=== PATIENT | female | born 1980 | race Caucasian/White ===

== ENCOUNTER 2023-06-04 10:18 | Outpatient (CLI) | payer BC, SELFPAY ==
--- NOTE | ~2023-06-04 | US_ITS ---
EXAMINATION: US OB <=14 wk fetus w TV DATE: 06/04/2023 11:05 INDICATION: First trimester dating TECHNIQUE: Real-time pelvic transabdominal and transvaginal ultrasound was performed. COMPARISON: None. FINDINGS: The uterus measures 10.5 x 5.7 x 4.7 cm. There is an intrauterine gestational sac. There is a 2.7 x 2.7 x 1.0 cm hypoechoic area adjacent to the gestational sac A yolk sac is identified. heart motion is identified not well demonstrated. The crown rump length measures 3 mm, which c orrelates with an estimated gestational age of 5 weeks and 6 day(s) (+/-) 4 day(s). The right ovary measures 5.4 x 2.1 x 2.0 cm. The left ovary measures 2.0 x 1.7 x 1.7 cm. There is nor mal vascular flow in the ovaries. There is no free fluid in the pelvis. IMPRESSION: 1. Live intrauterine with an estimated gestational age of 5 weeks and 6 day(s) (+/-) 4 day( s) and an estimated delivery date of 01/29/2024. 2. Subchorionic hematoma. 3. cardiac motion not well demonstrated, likely due to early . Reviewed, dictated and finalized at location L. X SYSTEM ADMINISTRATOR IMPRESSION: 1. Live intrauterine with an estimated gestational age of 5 weeks and 6 day(s) (+/-) 4 day(s) and an estimated delivery date of 01/29/2024. 2. Subchorionic hematoma. 3. cardiac motion not well demonstrated, likely due to early .
== END 2023-06-04 10:19 ==
LOC: GOSHIMG 10:21
PROVIDERS: PCP Internal Medicine; Visit Provider Student in an Organized Health Care Education/Training Program
DX: N94.89 Other specified conditions associated with female genital organs and menstrual cycle (principal); O36.8911 Maternal care for other specified fetal problems, first trimester, fetus 1; Z3A.01 Less than 8 weeks gestation of pregnancy
CPT/HCPCS: 76801; 76817

== ENCOUNTER 2023-06-10 11:03 | Outpatient (CLI) | payer BC, SELFPAY | END 2023-06-10 11:04 | disposition home or self-care (01) | LOC: ANHLAB 11:05 | PROVIDERS: PCP Internal Medicine; Visit Provider Student in an Organized Health Care Education/Training Program | DX: O20.0 Threatened abortion (principal); Z3A.00 Weeks of gestation of pregnancy not specified | CPT/HCPCS: 36415; 84702 ==

== ENCOUNTER 2023-06-12 09:08 | Emergency (ER) | payer BC, SELFPAY ==
--- NOTE | ~2023-06-12 | US_ITS ---
EXAMINATION: US OB <=14 wk fetus w TV DATE: 06/12/2023 10:59 INDICATION: Bleeding and cramping during first trimester TECHNIQUE: Real-time pelvic transabdominal and transvaginal ultrasound was performed. COMPARISON: 06/04/2023 FINDINGS: The uterus measures 10.6 x 5.5 x 4.8 cm. The endometrial thickness measures 17 mm. The prev iously described intrauterine gestational sac is no longer identified. The right ovary measures 3.4 x 1.9 x 2.3 cm. The left ovary measures 2.7 x 2.0 x 1.9 cm. There is normal vascular flow in the ovari es. There is no free fluid in the pelvis. IMPRESSION: 1. Findings consistent with failure. Reviewed, dictated and finalized at location B. ICAL PUNCH OPERATOR
[2023-06-12 09:24] VITALS: BP 118/78; PULSE 74; RESP 18; TEMP 36.5; O2SAT 99
--- NOTE | 2023-06-12 09:30 | ED.FEMALEGU ---
HPI - Female Genitourinary General Chief complaint: Vaginal Bleeding Stated complaint: vag bleed Time Seen by Provider: 06/12/23 09:24 History of Present Illness HPI Narrative: 43-year-old female, , reports for evaluation for vaginal bleeding. LMP 04/18/2023. She is currently approximately 7 weeks . Her OBGYN is Dr. Damon. Patient states she has had very light vaginal spotting for 4 days. States she woke up at 5:00 a.m. with lower abdominal and suprapubic pain and had a gush of bleeding at 5:00 a.m. lasting approximately 45 minutes. States she passed a few large clots. States around 545 or 6, the bleeding has lightened up and she has now had to change a pad every couple hours. She reports lightheadedness when going from a sitting to standing position. Denies syncope, chest pain or shortness of breath, dysuria, fever, vomiting or diarrhea. She does endorse nausea. Ultrasound on 06/04/2023 shows a live intrauterine with an estimated gestational age of 5 weeks and 6 days. ADRIANO 01/29/24. There is a subchorionic hematoma. cardiac motion was not well demonstrated, likely due to early . The patient has a history of rheumatoid arthritis. She has not been taking methotrexate for a few months. Related Data Home Medications Medication Instructions Recorded Confirmed vits no.126-ferrous fum tablet PO 06/03/23 06/03/23 28 mg iron-folic acid 800 mcg tablet (Classic ) Allergies Allergy/AdvReac Type Severity Reaction Status Date / Time No Known Allergies Allergy Verified 06/03/23 14:44 Review of Systems Review of Systems: CONSTITUTIONAL: Denies fever, chills, or sweats. EYES: Denies visual changes, redness, or discharge. ENT: Denies rhinorrhea, congestion, sore throat, or otalgia. CARDIOVASCULAR: Denies chest pain, palpitations, or edema. RESPIRATORY: Denies cough or dyspnea. GASTROINTESTINAL: See HPI GENITOURINARY: See HPI SKIN: Denies rash or itching. MUSCULOSKELETAL: Denies back pain, joint pain, or myalgia. NEUROLOGIC: Denies headache, numbness, or weakness. PSYCHIATRIC: Denies anxiety or depression. [facility] Past Medical History Medical History Rheumatoid arthritis Suppression of menses Surgical History Surgical History H/O gastric sleeve H/O gynecological procedure D & C History of delivery Hx of rhinoplasty Hx of tonsillectomy Family History Family History Mother Cerebrovascular accident Father Diabetes mellitus Social History Social History Smoking status: Never smoker Alcohol intake: former Substance use: former Substance use type: marijuana Lack of Transportation: No Lack of Food: Never True Current Housing: I Have Housing Concerned About Future Housing: No Difficulty Paying Gas/Electric Bills: No Difficulty Paying for Meds: No Currently Unemployed: No Education: High School Diploma/GED Difficulty w/ Childcare or Family Care: No Living arrangements: with family Occupation/Education: occupation Gender identity (if verbalized by the patient): Female Exam Narrative: GENERAL: Well-appearing, well-nourished, and in no acute distress. HEAD: Normocephalic, atraumatic. EYES: PERRLA and EOMI. ENT: Nares clear, no rhinorrhea or epistaxis. Mucous membranes moist. NECK: Supple. CHEST: Clear to auscultation. No respiratory distress. HEART: Regular rate and rhythm. No murmur heard. Normal peripheral pulses. ABDOMEN: Normoactive bowel sounds. Abdomen soft with mild tenderness in the suprapubic region. No guarding, rebound or rigidity. : No lesions, rashes or edema external genitalia, vaginal vault or cervix. Moderate amount of blood and surgical canal, no clots or tissue
[2023-06-12 09:34] LABS: Basophils Absolute Auto 0.1 K/mm3 (0.0-0.1); Basophils Percent Auto 0.8 % (0.2-1.2); Eosinophils Absolute Auto 0.2 K/mm3 (0-0.3); Eosinophils Percent Auto 1.5 % (0-4.4); Hematocrit 34.2 % (37.0-47.0); Hemoglobin 10.1 g/dL (12.0-15.0); Immature Granulocyte Absolute 0.04 K/mm3 (0.00-0.031); Immature Granulocyte Percent A 0.4 % (0-0.5); Lymphocytes Absolute Auto 2.11 K/mm3 (0.9-3.2); Mean Corpuscular HGB Conc 29.5 g/dl (32-36); Mean Corpuscular Hemoglobin 22.1 pg (26-34); Mean Corpuscular Volume 74.7 fl (80-100); Mean Platelet Volume 9.4 fl (7.4-10.4); Monocytes Absolute Auto 0.6 K/mm3 (0.1-0.6); Monocytes Percent Auto 5.2 % (2.6-8.5); Neutrophils Absolute Auto 8.1 K/mm3 (1.3-6.7); Neutrophils Percent Auto 73.1 % (45.5-73.1); Platelet Count Result 316 k/mm3 (150-375); Red Blood Count 4.58 M/mm3 (4.2-5.4); Red Cell Distribution Width 15.5 % (11.5-14.5); White Blood Count 11.1 K/mm3 (4.5-10.0)
[2023-06-12] MEDS: METOCLOPRAMIDE HCL 10 MG TABLET PO (09:41)
[2023-06-12] MEDS: ACETAMINOPHEN 500 MG TABLET 1000 MG PO (09:41)
--- NOTE | 2023-06-12 09:48 | PC.NURSE ---
Pt to US
[2023-06-12 09:53] LABS: Prothrombin Time 13.6 Seconds (11.1-14.7)
[2023-06-12 09:54] LABS: Partial Thromboplastin Time 26.7 SECONDS (22.3-36.8)
[2023-06-12] MEDS: SODIUM CHLORIDE 0.9% IV 1,000 ML 999 ML IV CONT (10:57)
[2023-06-12 11:04] VITALS: BP 113/70; PULSE 77
[2023-06-12 11:06] VITALS: BP 111/71; PULSE 81
[2023-06-12 11:07] VITALS: BP 102/68; PULSE 84
[2023-06-12] MEDS: MORPHINE SULFATE (*CRX) 4 MG/ML INJ IV PUSH (11:26)
[2023-06-12 12:52] LABS: Appearance Urine Clear (Clear); Bacteria Urine None Seen /hpf; Bilirubin Urine Negative (Negative); Blood Urine 3+ (Negative); Color Urine Yellow (Yellow); Glucose Urine UA Negative (Negative); Ketones Urine Negative (Negative); Leukocyte Esterase Ur Negative LEU/UL (Negative); Nitrate Urine Negative (Negative); Non Pathogenic Casts 0-2; Protein Urine Negative (Negative); RBC Urine >100 /hpf (0-2); Specific Grav Ur 1.028 (1.001-1.035); Squamous Epithelial Cell Urine None seen /hpf (Few); Urobilinogen Urine 0.2 mg/dL (<2.0); WBC Urine 0-5 /hpf
[2023-06-12 13:08] LABS: Add Urine Microscopic? YES
[2023-06-12 13:15] VITALS: BP 100/70; PULSE 80; RESP 18; O2SAT 98
== END 2023-06-12 13:15 | disposition home or self-care (01) ==
PROVIDERS: Student in an Organized Health Care Education/Training Program; Emergency Provider Physician Assistant
DX: O03.4 Incomplete spontaneous abortion without complication (principal); M06.9 Rheumatoid arthritis, unspecified; Z98.84 Bariatric surgery status
CPT/HCPCS: 36415; 76801; 76817; 81001; 84702; 85025; 85461; 85610; 85730; 86850; 86900; 86901; 96361; 96374; 99284; A9270; J2270; J7030

== ENCOUNTER 2023-07-08 08:02 | Emergency (ER) | payer BC, SELFPAY ==
--- NOTE | 2023-07-08 08:07 | ED.GENADULT ---
HPI - General Adult General Chief complaint: Upper Respiratory Infection Stated complaint: ears/throat/fever Source: patient, RN notes reviewed and old records reviewed Mode of arrival: ambulatory Limitations: no limitations History of Present Illness HPI narrative: 43-year-old female presents to [facility] with complaints sore throat, sinus congestion, bilateral ear pain, myalgias that started yesterday. Patient taking DayQuil. Patient states has cough only when she lays down, and can not breathe through her nose when she lays down. Patient denies chest pain, shortness of breath, weakness, dizziness. MD complaint: sore throat Onset (ago): day(s) (1) Related Data Home Medications Medication Instructions Recorded Confirmed trazodone 50 mg tablet 50 mg PO 06/26/23 06/26/23 Allergies Allergy/AdvReac Type Severity Reaction Status Date / Time No Known Allergies Allergy Verified 06/26/23 08:35 Review of Systems Constitutional: Constitutional: Reports no additional constitutional complaints, Reports body ache(s), Denies chills, Denies fatigue, Denies fever(s) and Denies headache(s) Eyes: Eyes: Reports no additional eye complaints and Denies blurry vision ENT: Reports system reviewed and no additional complaints, except as documented, Denies vertigo, Denies dizziness, Denies ear discharge, Reports otalgia, Denies facial pain, Denies headache(s), Reports nasal congestion, Denies nasal discharge, Denies sinus pain, Reports sinus pressure and Reports sore throat Cardiovascular: Cardiovascular: Reports no additional cardiovascular complaints, Denies chest pain, Denies chest pain at rest, Denies rapid heart rate and Denies dyspnea Respiratory: Respiratory: Reports no additional respiratory complaints, Denies chest congestion, Reports cough, Denies pain on inspiration, Denies pain with cough and Denies dyspnea Gastrointestinal: Gastrointestinal: Denies abdominal pain, Denies diarrhea, Denies nausea and Denies vomiting Integumentary/Breasts: Skin/Breast: Denies rash Neurologic: Reports system reviewed and no additional complaints, except as documented, Denies vertigo, Denies dizziness and Denies headache(s) Endocrine: Endocrine: Denies fatigue PMFSH Past Medical History Medical History Rheumatoid arthritis Suppression of menses Surgical History Surgical History H/O gastric sleeve H/O gynecological procedure D & C History of delivery Hx of rhinoplasty Hx of tonsillectomy Family History Family History Mother Cerebrovascular accident Father Diabetes mellitus Social History Social History Smoking status: Never smoker Alcohol intake: former Substance use: former Substance use type: marijuana Lack of Transportation: No Lack of Food: Never True Current Housing: I Have Housing Concerned About Future Housing: No Difficulty Paying Gas/Electric Bills: No Difficulty Paying for Meds: No Currently Unemployed: No Education: High School Diploma/GED Difficulty w/ Childcare or Family Care: No Living arrangements: with family Occupation/Education: occupation Gender identity (if verbalized by the patient): Female Comments At the time of my signature, I reviewed and agree with the nursing past medical, surgical, social, and family history. There is no relevant family history pertinent to the patient complaint. Exam Const: General: cooperative, healthy appearing, no acute distress and well nourished Nutritional Appearance: well nourished Orientation/consciousness: patient oriented x3 Limitations: no limitations HENMT: Head: normal to inspection and normocephalic Ears: external ears normal, TM's normal bilaterally, mastoids normal and Abnormal EAC present Face
[2023-07-08 08:13] VITALS: BP 125/78; PULSE 88; RESP 16; TEMP 36.6; O2SAT 99
== END 2023-07-08 08:49 | disposition home or self-care (01) ==
PROVIDERS: Emergency Provider Registered Nurse; PCP Internal Medicine
DX: J03.90 Acute tonsillitis, unspecified (principal); Z20.822 Contact with and (suspected) exposure to COVID-19; M06.9 Rheumatoid arthritis, unspecified; Z98.84 Bariatric surgery status
CPT/HCPCS: 87081; 87426; 87804; 87880; 99213; G0463

== ENCOUNTER 2023-07-25 00:34 | Day surgery (SDC) | payer BC, SELFPAY ==
[2023-07-16 10:33] VITALS: BMI 36.6
--- NOTE | 2023-07-16 10:42 | PC.NURSE ---
Report to the Outpatient Waiting Room, entrance under the green pavilion located off [facility], at time 1200 on date 07/25/23. Planned Procedure Time: 1400. Time changes happen often and if your time is changed the preop area will call you the afternoon before. - You and your visitor will be asked to self-screen and do not enter if you have any COVID symptoms. - A mask is optional within the hospital at this time. Patients may have clear liquids (water, carbonated beverages, clear teas, apple juice) until 3 hours prior to surgery with a maximum of 20 ounces. - No food from midnight until time of surgery Take the following medications with a SIP of water the morning of surgery: NONE DO NOT STOP ANY OF YOUR OTHER PRESCRIPTION MEDICATIONS PRIOR TO SURGERY ?EXCEPT THE FOLLOWING Medications to discontinue per physician: N/A Date to take last dose: N/A Please no make-up, nail serbian, hairspray, perfume, deodorant, or body powder the day of surgery. No jewelry (including any body piercings) or valuables the day of surgery, leave them at home. Please take a shower or bath the night before, or the morning of, surgery with an antibacterial soap. Wear comfortable, loose fitting clothing. - Jewelry must be removed prior to entering the operating room. Rings and piercings that are not removed may be cut off. - The hospital will not accept responsibility for valuables. - Please leave all valuables, including medications, at home the day of surgery. If you are going home after surgery, a licensed form setter/driver must drive you home. - NO public transportation without another adult if you receive anesthesia. - We recommend that an adult stay with you for 24 hours following discharge. - We also recommend that you do not drive, make important decision, drink alcoholic beverages, or take any drugs that were not prescribed by your health care provider for at least 24 hours after your discharge time. Follow any additional instructions given to you from your surgeon. If you or anyone in your household have experienced Covid symptoms in the past week, please notify your surgeon or the nurse liaison at the phone number below for possible testing. Telephone instructions given to PT Beverly SINGH and asked if any additional questions and then verbalized understanding. Patient advised to call surgeon office or pre surgery nurse liaison [phone] if any additional questions.
--- NOTE | 2023-07-24 13:54 | PM.IMHP ---
H&P: HPI History of Present Illness Date/Time: 07/24/23 13:54 Chief Complaint: desires permanent sterilization Narrative: 43-year-old 031 who presents laparoscopic bilateral salpingectomy for permanent sterilization.? patient was recently found to have a missed on ultrasound.? Patient has had multiple losses in the past.? Patient has struggled with depression regarding her losses.? She states her mood is stable today.? Patient talked with her and does not want to go through a possible future loss.? Patient states that due to her history of losses and her age she would like to have permanent sterilization performed. Review of Systems Cardiovascular: Cardiovascular: Denies chest pain, Denies leg edema, Denies palpitations, Denies dyspnea and Denies dyspnea on exertion Respiratory: Respiratory: Denies cough, Denies dyspnea and Denies dyspnea on exertion Gastrointestinal: Gastrointestinal: Denies abdominal pain, Denies constipation, Denies diarrhea, Denies nausea and Denies vomiting Genitourinary: Genitourinary: Denies hematuria, Denies urinary frequency, Denies dysuria, Denies pelvic pain, Denies urinary incontinence and Denies vaginal discharge Neurologic: Reports system reviewed and no additional complaints, except as documented Psychiatric: Psychiatric: Reports no additional psychiatric complaints Endocrine: Endocrine: Denies palpitations PMFSH Past Medical History Medical History Rheumatoid arthritis Suppression of menses Surgical History Surgical History H/O gastric sleeve H/O gynecological procedure D & C History of delivery Hx of rhinoplasty Hx of tonsillectomy Family History Family History Mother Cerebrovascular accident Father Diabetes mellitus Social History Social History Smoking packs per day: 0.25 Smoking cigarettes per day: 5.0 Years smoked: 6 Smoking pack-years: 1.50 Smoking status: Former smoker Tobacco type: cigarettes and e-cigarettes/vaping Additional smoking assessment comments: QUIT CIAGARETTES 2013, QUIT VAPING 2020 Alcohol intake: current Alcohol use details: 1 EVERY 3-4 MONTHS Substance use: never Substance use type: does not use Lack of Transportation: No Lack of Food: Never True Current Housing: I Have Housing Concerned About Future Housing: No Difficulty Paying Gas/Electric Bills: No Difficulty Paying for Meds: No Currently Unemployed: No Education: High School Diploma/GED Difficulty w/ Childcare or Family Care: No Living arrangements: with family Occupation/Education: occupation Gender identity (if verbalized by the patient): Female Spiritual care concerns: No Meds Home Medications and Allergies Home Medications Medication Instructions Recorded Confirmed Type amoxicillin 500 mg capsule 500 mg PO Q12H 10 days #20 caps 07/08/23 07/16/23 Rx drospirenone (contraceptive) 4 mg 1 tablet PO HS 07/16/23 07/16/23 History (28) tablet (Slynd) Allergies Allergy/AdvReac Type Severity Reaction Status Date / Time nirmatrelvir [From Paxlovid] Allergy Severe Nausea and Verified 07/16/23 10:32 Vomiting ritonavir [From Paxlovid] Allergy Severe Nausea and Verified 07/16/23 10:32 Vomiting Exam Const: General: no acute distress Eyes: EOM: EOMs intact bilaterally Neck: Neck: supple Thyroid: thyroid normal Chest: Breast/axilla inspection: normal inspection of the breasts Breast/axilla palpation: normal palpation of the breasts, normal palpation of the axillae and no axillary lymphadenopathy Resp: Effort & Inspection: normal respiratory effort Auscultation: clear to auscultation bilaterally Cardio: Rate: regular rate
[2023-07-25] VITALS (7 sets, daily range): BP systolic 88–140; BP diastolic 40–76; PULSE 69–100; RESP 16–20; TEMP 36.6–36.7; O2SAT 100
[2023-07-25] MEDS: LACTATED RINGERS 1,000 ML 30 ML IV CONT (11:45)
[2023-07-25] MEDS: ACETAMINOPHEN 500 MG TABLET 1000 MG PO (11:51)
[2023-07-25] MEDS: KETOROLAC 15 MG/ML VIAL (*BKC) IV PUSH (11:53)
--- NOTE | 2023-07-25 13:17 | WPDHPUPDATE1 ---
History and Physical Update Update Date/Time: 07/25/23 13:17 History and Physical has been reviewed, including an updated exam of the patient. There are NO changes in the patient's condition. Risks, benefits, and alternatives have been discussed and questions answered. Patient agrees to proceed with procedure.
--- NOTE | 2023-07-25 14:11 | WPDANESEPPF ---
Anes - Initial Pre Proc Eval Procedure: Operation Date: 07/25/23 13:30 Proposed Procedures p Bilateral Laparoscopic Salpingectomy - Montrell Damon MD Date/Time: 07/25/23 14:11 Surgeon: Montrell Damon MD Pre Op Diagnosis: Desire Sterilization Patient Data Age: 43 Gender: F Height: 1.57 m Weight: 95.8 kg Last Vital Signs Temp 98 F 07/25/23 11:58 Pulse 72 07/25/23 11:58 Resp 16 07/25/23 11:58 BP 140/65 07/25/23 11:58 Pulse Ox 100 07/25/23 11:58 O2 Del Method Room Air 07/25/23 11:58 Allergies Allergy/AdvReac Type Severity Reaction Status Date / Time nirmatrelvir [From Paxlovid] Allergy Severe Nausea and Verified 07/25/23 11:25 Vomiting ritonavir [From Paxlovid] Allergy Severe Nausea and Verified 07/25/23 11:25 Vomiting Home Medications Medication Instructions Recorded Confirmed Type drospirenone (contraceptive) 4 mg 1 tablet PO HS 07/16/23 07/25/23 History (28) tablet (Slynd) trazodone 50 mg tablet 50 mg PO HS 07/25/23 07/25/23 History Patient hx anesthesia problems: none Family hx anesthesia problems: none Results Review: All pre-operative results and documents have been reviewed as part of the pre-operative evaluation. [facility] Past Medical History Medical History Rheumatoid arthritis Suppression of menses Surgical History Surgical History H/O gastric sleeve H/O gynecological procedure D & C History of delivery Hx of rhinoplasty Hx of tonsillectomy Family History Family History Mother Cerebrovascular accident Father Diabetes mellitus Social History Social History Smoking packs per day: 0.25 Smoking cigarettes per day: 5.0 Years smoked: 6 Smoking pack-years: 1.50 Smoking status: Former smoker Tobacco type: cigarettes and e-cigarettes/vaping Additional smoking assessment comments: QUIT CIAGARETTES 2013, QUIT VAPING 2020 Alcohol intake: current Alcohol use details: 1 EVERY 3-4 MONTHS Substance use: never Substance use type: does not use Lack of Transportation: No Lack of Food: Never True Current Housing: I Have Housing Concerned About Future Housing: No Difficulty Paying Gas/Electric Bills: No Difficulty Paying for Meds: No Currently Unemployed: No Education: High School Diploma/GED Difficulty w/ Childcare or Family Care: No Living arrangements: with family Occupation/Education: occupation Gender identity (if verbalized by the patient): Female Spiritual care concerns: No Anes - Eval Final PreProcedure Day of Procedure 07/25/23 14:11 Patient weight: obese Heart: regular rate and rhythm Lungs: clear to auscultation Airway: Mallampati scale class II Neurological: alert and oriented Last oral intake: >/= 8 hours ASA classification: III Emergent: no Anesthetic plan: proceed Anesthesia type and monitoring: general ETT and standard monitoring Results Review: All pre-operative results and documents have been reviewed as part of the pre-operative evaluation. Informed Consent: The patient's anesthetic plan and its attendant risks and benefits were discussed with the patient/family/POA. Questions were solicited and answers provided to the satisfaction of the patient/family/POA.
[2023-07-25] MEDS: LIDO 1%/EPINEPHRINE 1:100,000 50 ML VIAL 15 ML INFILTRATE (14:21)
--- NOTE | 2023-07-25 14:56 | P.OP_ITS ---
Procedure Note - Detailed Date of Procedure 07/25/23 Pre-op Diagnosis Desire Sterilization Post-op Diagnosis Same Procedure Performed laparoscopic bilateral salpingectomy Surgeon Montrell Damon MD Anesthesia General Indications desires permanent sterilization Findings normal appearing uterus, bilateral fallopian tubes and ovaries Description of Procedure the patient was taken to the operating room where general endotracheal anesthesia was undertaken and found to be adequate. She was then prepped and draped in the dorsal lithotomy position. A pre-operative team brief and time- out were completed. A catheter was placed to drain the bladder. Speculum was placed in the vagina and the cervix was identified. An acorn uterine manipulator was placed as well as single-tooth tenaculum on the anterior lip of the cervix. Attention was then turned to the abdomen which was anesthetized umbilical he with injected anesthetic. A 5 mm skin incision was made in the umbilicus. A 5 mm optical trocar was then placed with direct visualization of the abdominal layers during placement. The trocar stylette was removed and the camera was used to verify intra-abdominal placement.nathaniel was used to verify intra-abdominal placement. CO2 insufflation was then connected and The abdominal cavity was insufflated. General abdominal and pelvic survey was performed. Two other laparoscopic port site incisions were made approximately 2 cm superior and medial of the ASIS bilaterally. Both fallopian tubes were inspected and identified out to the level of the fimbriae. The Fimbriated end of the left fallopian tube was then grasped with a blunt grasper. the fallopian tube was then transected along its inferior aspect along the mesosalpinx with the LigaSure device. Transection was carried out to the fallopian tubes insertion into the uterine fundus. The fallopian tube was then completely transected from the uterus using the LigaSure device. This procedure was repeated for the right fallopian tube. Good hemostasis was maintained throughout. The transected fgh the 5 mm laparoscopic portrom the abdomen through the 5 mm laparoscopic port. The surgical field was inspected and again could hemostasis was noted. At this point the procedure was ended. The abdomen was desufflated. All laparoscopic ports were removed from the abdomen. Abdominal incisions were closed with 4-0 Vicryl in a subcuticular fashion.. The acorn manipulator and tenaculum weere removed from the vagina. The cervix was inspected and good hemostasis was obtained. Sponge, lap and needle counts were correct. The patient tolerated the procedure well. The patient was taken out of dorsal lithotomy. anesthesia was reversed. The patient was taken to PACU in stable condition. Estimated Blood Loss 10 Urine Output 10 Drains No Packing No Pathology Yes ( Bilateral fallopian tubes) Complications No immediate complications Condition Stable Disposition PACU [facility] Billing Surgery - Charge Forward: Surgery Billing
[2023-07-25] MEDS: fentaNYL CITRATE INJ (*CRX) 100 MCG/2 ML VIAL 25 MCG IV PUSH ×2 (15:18→15:20)
[2023-07-25] MEDS: BENZOCAINE/MENTHOL (*BKC) 18 EA LOZENGE 1 LOZENGE PO (16:03)
== END 2023-07-25 16:45 | disposition home or self-care (01) ==
PROVIDERS: PCP Internal Medicine; Visit Provider Student in an Organized Health Care Education/Training Program
PROC: (CPT 49320; principal; 2023-07-25 13:30)
DX: Z30.2 Encounter for sterilization (principal); F32.A Depression, unspecified; E66.9 Obesity, unspecified; Z68.38 Body mass index [BMI] 38.0-38.9, adult; Z98.890 Other specified postprocedural states; Z98.84 Bariatric surgery status; Z87.891 Personal history of nicotine dependence; Z82.49 Family history of ischemic heart disease and other diseases of the circulatory system
CPT/HCPCS: 58661; 88302; A9270; J0330; J1100; J1885; J2250; J2405; J2704; J3010; J7120

== ENCOUNTER 2024-03-23 13:10 | Emergency (ER) | payer BC, SELFPAY ==
[2024-03-23 13:24] VITALS: BP 124/86; PULSE 85; RESP 16; TEMP 36.6; O2SAT 98
--- NOTE | 2024-03-23 13:31 | ED.URI ---
HPI - URI/Sore Throat General Chief Complaint: Upper Respiratory Infection Stated Complaint: Ear Pain/Headache/Body Aches/Fever History of Present Illness HPI Narrative: patient is a 44-year-old female, presents to [facility] with 48 hour history of URI symptoms, including nasal congestion, postnasal drip and slight dry cough. She also reports left otalgia. She denies known sick contacts. She does endorse a low-grade fever this morning of 100 F around 0300. She took a dose of Tylenol at that time and she has not had recurrence for fever since. She denies any additional associated symptoms or modifying factors. Related Data Home Medications Medication Instructions Recorded Confirmed trazodone 50 mg tablet 50 mg PO HS 07/25/23 11/19/23 fluticasone propionate 50 intranasal 03/23/24 mcg/actuation nasal spray,suspension tirzepatide 5 mg/0.5 mL mg subcut 03/23/24 subcutaneous pen injector (Toñitounyumikoro) Allergies Allergy/AdvReac Type Severity Reaction Status Date / Time nirmatrelvir [From Paxlovid] Allergy Severe Nausea and Verified 11/19/23 08:27 Vomiting ritonavir [From Paxlovid] Allergy Severe Nausea and Verified 11/19/23 08:27 Vomiting Review of Systems Review of Systems: REFER TO HISTORY ENT: Comments: REFER TO [facility] Past Medical History Medical History Rheumatoid arthritis Screening mammogram for breast cancer Suppression of menses Surgical History Surgical History H/O bilateral salpingectomy H/O gastric sleeve H/O gynecological procedure D & C History of delivery Hx of rhinoplasty Hx of tonsillectomy Family History Family History Mother Cerebrovascular accident Father Diabetes mellitus Social History Social History Smoking packs per day: 0.25 Smoking cigarettes per day: 5.0 Years smoked: 6 Smoking pack-years: 1.50 Smoking status: Former smoker Tobacco type: cigarettes and e-cigarettes/vaping Additional smoking assessment comments: QUIT CIAGARETTES 2013, QUIT VAPING 2020 Alcohol intake: current Alcohol use details: 1 EVERY 3-4 MONTHS Substance use: never Substance use type: does not use Lack of Transportation: No Lack of Food: Never True Current Housing: I Have Housing Concerned About Future Housing: No Difficulty Paying Gas/Electric Bills: No Difficulty Paying for Meds: No Currently Unemployed: No Education: High School Diploma/GED Difficulty w/ Childcare or Family Care: No Living arrangements: with family Occupation/Education: occupation Gender identity (if verbalized by the patient): Female Spiritual care concerns: No Exam Const: General: healthy appearing, no acute distress and alert Nutritional Appearance: well nourished Limitations: no limitations HENMT: Head: normal to inspection Ears: external ears normal and Abnormal EAC present ( Serous pattern bilaterally, left TM is retracted) Mouth: Yes Normal oral and palatal mucosa present, Yes lip normal and Yes moist mucous membranes Teeth and gingiva: dentition normal Throat: posterior oropharynx normal and uvula midline Eyes: Conjunctivae: conjunctivae normal EOM: EOMs intact bilaterally Neck: Neck: normal visual inspection, no lymphadenopathy and no meningeal signs Resp: Effort & Inspection: normal respiratory effort Auscultation: clear to auscultation bilaterally Cardio: Rate: regular rate Rhythm: regular rhythm Skin: General skin exam: normal color Rashes: no rashes Neuro: General: patient oriented x3, moves all extremities, no meningeal signs and no focal motor deficits Cranial nerves: Yes Nystagmus not present Speech: normal speech Gait exam (Neuro): Normal gait present Extrem: General: normal to
[2024-03-23 14:30] LABS: EDCOVIDSCREEN Negative (Negative)
== END 2024-03-23 13:52 | disposition home or self-care (01) ==
PROVIDERS: Emergency Provider Nurse Practitioner Family; PCP Internal Medicine
DX: J06.9 Acute upper respiratory infection, unspecified (principal); H65.03 Acute serous otitis media, bilateral; Z20.822 Contact with and (suspected) exposure to COVID-19; Z87.891 Personal history of nicotine dependence; M06.9 Rheumatoid arthritis, unspecified; Z98.84 Bariatric surgery status
CPT/HCPCS: 87426; 87635; 99213; G0463

== ENCOUNTER 2024-05-18 08:02 | Emergency (ER) | payer BC, SELFPAY ==
--- NOTE | 2024-05-18 08:06 | ED.URI ---
HPI - URI/Sore Throat General Chief Complaint: Upper Respiratory Infection Stated Complaint: Cough/Shortness of Breath/Ear Problem Time Seen by Provider: 05/18/24 08:19 Source: patient and RN notes reviewed Mode of arrival: ambulatory Limitations: no limitations History of Present Illness HPI Narrative: 44-year-old female presents with concern for 6 day history of cough, chest congestion, shortness of breath. She reports it is hard to breathe when she lays down. She reports ear pain as well. Reports she has been taking some [id number] medication without relief. She reports she has felt hot but has not had a fever. Her son had pneumonia 2 weeks ago. MD elicited complaint: cough and sore throat Related Data Home Medications Medication Instructions Recorded Confirmed tirzepatide 5 mg/0.5 mL mg subcut 03/23/24 subcutaneous pen injector (Mary) Allergies Allergy/AdvReac Type Severity Reaction Status Date / Time nirmatrelvir [From Paxlovid] Allergy Severe Nausea and Verified 11/19/23 08:27 Vomiting ritonavir [From Paxlovid] Allergy Severe Nausea and Verified 11/19/23 08:27 Vomiting Review of Systems Review of Systems: CONSTITUTIONAL: Reports malaise, sweats EYES: Denies visual changes, redness, or discharge. ENT: Denies rhinorrhea, congestion, sinus pain. Reports otalgia CARDIOVASCULAR: Denies chest pain, palpitations, or edema. RESPIRATORY: Reports cough, chest congestion, shortness of breath GASTROINTESTINAL: Denies abdominal pain, nausea, vomiting, diarrhea SKIN: Denies rash or itching. MUSCULOSKELETAL: Reports myalgia. NEUROLOGIC: Denies headache. All systems reviewed & are unremarkable except as noted in HPI and below PMFSH Past Medical History Medical History Rheumatoid arthritis Screening mammogram for breast cancer Suppression of menses Surgical History Surgical History H/O bilateral salpingectomy H/O gastric sleeve H/O gynecological procedure D & C History of delivery Hx of rhinoplasty Hx of tonsillectomy Family History Family History Mother Cerebrovascular accident Father Diabetes mellitus Social History Social History Smoking packs per day: 0.25 Smoking cigarettes per day: 5.0 Years smoked: 6 Smoking pack-years: 1.50 Smoking status: Former smoker Tobacco type: cigarettes and e-cigarettes/vaping Additional smoking assessment comments: QUIT CIAGARETTES 2013, QUIT VAPING 2020 Alcohol intake: current Alcohol use details: 1 EVERY 3-4 MONTHS Substance use: never Substance use type: does not use Lack of Transportation: No Lack of Food: Never True Current Housing: I Have Housing Concerned About Future Housing: No Difficulty Paying Gas/Electric Bills: No Difficulty Paying for Meds: No Currently Unemployed: No Education: High School Diploma/GED Difficulty w/ Childcare or Family Care: No Living arrangements: with family Occupation/Education: occupation Gender identity (if verbalized by the patient): Female Spiritual care concerns: No Comments At time of signature, agree with nursing past medical, surgical, social and family history. There is no relevant family history pertinent to the presenting complaint Exam Narrative: GENERAL: Well-appearing, well-nourished, and in no acute distress. HEAD: Normocephalic EYES: PERRLA, conjunctivae clear ENT: Nares clear. Mucous membranes moist. TM pearly zaidi with dull light reflex bilaterally; no tragal tenderness. Oropharynx not erythematous without lesions. Tonsils not enlarged and without exudate, no drooling, no hoarseness, no trismus, uvula midline. NECK: Supple. No lymphadenopathy CHEST: Scattered expiratory wheeze, rhonchi, breath sounds equal. No rales, or stridor. No respiratory distress, speaks in full sentences. HEART: Regular rate and rhythm. No murmur heard. SKIN: Warm, dry, no rash. NEURO: Alert and oriented x3. PSYCH: Normal mood and affect Course Course Emergency Course: Patient is aware of diagnosis, understands and agrees to treatment plan. Anticipatory guidance given. Patient agrees to follow-up as directed and is aware of reasons to seek care at the emergency department. Portions of this record may have been created with voice recognition software Level of Care: Express Care Visit Vital Signs Vital signs: Reviewed. MDM - URI/Sore Throat MDM Narrative Medical decision making narrative: Differential diagnosis considered: Luna virus, strep pharyngitis, allergic rhinitis, upper respiratory tract infection, sinusitis, rhinosinusitis, nasopharyngitis. viral pharyngitis, otitis media, otitis externa, pneumonia, bronchitis, viral cough syndrome, viral syndrome, and influenza. Exam findings show no acute concerns or changes; patient is non-toxic appearing and is in no distress. Patient is appropriate for outpatient treatment and follow-up. Lab Data Attestation: I reviewed the patient's lab results. Critical Care Time Critical Care Time Critical Care Time: No Discharge Plan Discharge Clinical Impression: Lower respiratory tract infection Patient Disposition: Home, Self-Care Condition: Stable Instructions: Antibiotic Form, How to Use a Metered-Dose Inhaler (ED) Additional Instructions: Take medication as prescribed Recommend antihistamine such as Benadryl at night time and Zyrtec or Nuha during the day Use inhaler as needed for cough, wheezing, shortness of breath or chest tightness. Also, recommend symptomatic treatment includes: rest, fluids, and increase humidity of the air at home. Recommend Acetaminophen as directed on the bottle to reduce fever, pain, headache. Avoid smoking/second-hand smoke. Please schedule a follow-up visit with your personal physician for further evaluation and treatment within 3-5days. If your symptoms persist, change or worsen significantly before you can contact your personal physician then please, without delay, go to the emergency department for further evaluation. Prescriptions: New azithromycin [Zithromax Z-Shun] 250 mg tablet See Rx Instructions .ROUTE .COMPLEX Qty: 6 0RF Rx Instructions: take 500 mg today (day 1), then 250 mg for 4 days (days 2-5) methylprednisolone [Medrol (Shun)] 4 mg tablets,dose pack See Rx Instructions .ROUTE .COMPLEX Qty: 21 0RF Rx Instructions: orally per package directions albuterol sulfate 90 mcg/actuation HFA aerosol inhaler 2 puff INHALATION QID PRN (Reason: shortness of breath or wheezing) Qty: 8.5 0RF No Action Mounjaro 5 mg/0.5 mL pen injector SUBCUT Follow-up/Referrals: Carlos,Pascual Card MD [Primary Care Provider] - Time of Disposition: 08:28
[2024-05-18 08:10] VITALS: BP 125/87; PULSE 84; RESP 16; TEMP 36.6; O2SAT 100
== END 2024-05-18 08:37 | disposition home or self-care (01) ==
PROVIDERS: Emergency Provider Nurse Practitioner; PCP Internal Medicine
DX: J22 Unspecified acute lower respiratory infection (principal); Z87.891 Personal history of nicotine dependence; M06.9 Rheumatoid arthritis, unspecified; Z98.84 Bariatric surgery status
CPT/HCPCS: 99213; G0463

== ENCOUNTER 2025-01-04 12:28 | Outpatient (CLI) | payer BC, SELFPAY ==
--- NOTE | ~2025-01-04 | XR_ITS ---
Right foot Technique: AP and lateral views were obtained. Clinical History: Arthropathic psoriasis Findings: No acute fracture or dislocation is seen. Osseous alignment is anatomic. Joint spaces are p reserved without erosive or degenerative change. Soft tissues are unremarkable. Impression: Unremarkable right foot radiographs. Reviewed, dictated and finalized at location . Impression: Unremarkable right foot radiographs.
--- NOTE | ~2025-01-04 | XR_ITS ---
Right Hand Technique: PA and lateral views were obtained. Clinical History: Arthropathic psoriasis Findings: No acute fracture or dislocation is seen. Osseous alignment is anatomic. Joint spaces are p reserved. Soft tissues are unremarkable. Impression: Unremarkable right hand. Reviewed, dictated and finalized at location M. Impression: Unremarkable right hand.
--- NOTE | ~2025-01-04 | XR_ITS ---
Left foot Technique: AP and lateral views were obtained. Clinical History: Arthropathic psoriasis Findings: No acute fracture or dislocation is seen. Osseous alignment is anatomic. Joint spaces are p reserved without erosive or degenerative change. Soft tissues are unremarkable. Impression: Unremarkable left foot radiographs. Reviewed, dictated and finalized at location . Impression: Unremarkable left foot radiographs.
--- NOTE | ~2025-01-04 | XR_ITS ---
Left Hand Technique: PA and lateral views were obtained. Clinical History: Arthropathic psoriasis Findings: No acute fracture or dislocation is seen. Osseous alignment is anatomic. Joint spaces are p reserved. Soft tissues are unremarkable. Impression: Unremarkable left hand. Reviewed, dictated and finalized at location M. Impression: Unremarkable left hand.
--- NOTE | ~2025-01-04 | XR_ITS ---
AP and oblique views of the SI joints CLINICAL HISTORY: Arthropathic psoriasis FINDINGS: Bilateral hip joints and SI joints are unremarkable. No evidence for erosive or inflammator y arthropathy. No erosive change or stenosis. No degenerative change. Soft tissues are unremarkable. No fracture or dislocation. IMPRESSION: Unremarkable exam. Reviewed, dictated and finalized at location . IMPRESSION: Unremarkable exam.
--- NOTE | ~2025-01-04 | XR_ITS ---
Lumbosacral Spine: AP, oblique, and lateral views Clinical History: Arthropathic psoriasis Findings: The normal lordotic curve is maintained. The vertebral bodies and posterior elements are i ntact. The intervertebral disc spaces are preserved. The sacroiliac joints are normally outlined. Impression: No significant abnormality. Reviewed, dictated and finalized at [facility]. Impression: No significant abnormality.
[2025-01-04 14:00] LABS: Add Urine Microscopic? NO; Appearance Urine Clear (Clear); Glucose Urine UA Negative (Negative); Leukocyte Esterase Ur Negative LEU/UL (Negative); Nitrate Urine Negative (Negative); Specific Grav Ur 1.004 (1.001-1.035)
[2025-01-04 14:01] LABS: Hematocrit 41.5 % (37.0-47.0); Hemoglobin 13.1 g/dL (12.0-15.0); Immature Granulocyte Percent A 0.3 % (0-0.5); Lymphocytes Absolute Auto 2.15 K/mm3 (0.9-3.2); Mean Corpuscular HGB Conc 31.6 g/dl (32-36); Mean Corpuscular Hemoglobin 26.4 pg (26-34); Mean Corpuscular Volume 83.5 fl (80-100); Nucleated Red Blood Cells Absolute Auto 0.000 K/mm3 (0.0-0.012); Nucleated Red Blood Cells Perc 0.0 % (0.0-0.2); Platelet Count Result 269 k/mm3 (150-375); Red Blood Count 4.97 M/mm3 (4.2-5.4); White Blood Count 7.8 K/mm3 (4.5-10.0)
[2025-01-04 14:14] LABS: Alanine Aminotransferase 15 U/L (6-35); Albumin Level 4.6 g/dL (3.5-5.1); Alkaline Phosphatase 55 U/L (38-126); Anion Gap 9 mmol/L (4-12); Aspartate Amino Transferase 29 U/L (14-36); Bilirubin,Total 0.3 mg/dL (0.2-1.3); Blood Urea Nitrogen 8 mg/dL (7-17); CRP 0.5 mg/dL (<1.0); Calcium 9.6 mg/dL (8.4-10.2); Carbon Dioxide 25 mmol/L (22-30); Chloride 104 mmol/L (98-107); Estimated Glomerular Filt Rate > 60; Glucose 80 mg/dL (65-110); Potassium 4.0 mmol/L (3.4-5.0); Sodium 138 mmol/L (137-145); Total Protein 8.2 g/dL (6.3-8.2); Uric Acid 4.3 mg/dL (2.5-7.5)
[2025-01-04 14:43] LABS: Hepatitis B Surface Antigen Negative (Negative)
[2025-01-04 14:47] LABS: Thyroid Stimulating Hormone 0.624 uIU/mL (0.465-4.680)
[2025-01-04 14:49] LABS: HAV RESULT Negative (Negative); Hepatitis B Core IgM Result Negative (Negative)
[2025-01-04 16:06] LABS: HBSAB RETEST 1 9.80 S/C
[2025-01-04 16:18] LABS: HBSAB RETEST 2 9.50 S/C; Hepatitis B Surface Anti Res Indeterminate
[2025-01-05 13:09] LABS: Anti-CCP Ab, IgG/IgA 4 units (0-19)
== END 2025-01-04 12:29 | disposition home or self-care (01) ==
PROVIDERS: PCP Internal Medicine; Visit Provider Internal Medicine
DX: L40.50 Arthropathic psoriasis, unspecified (principal)
CPT/HCPCS: 36415; 72110; 72202; 73120; 73620; 80053; 80074; 81003; 84100; 84443; 84550; 85025; 85652; 86140; 86200; 86430; 86480; 86706